=== PATIENT | female | born 1990 | race Caucasian/White ===

== ENCOUNTER → 2024-08-15 | Outpatient (CLI) | payer MEDICAID ==
[2024-08-15 15:06] LABS: HCT 37.4 % (37.2-46.3); MCH 29.7 pg (27.0-32.0); MCHC 32.1 g/dL (32.0-37.0); MCV 92.6 FL (80.0-97.0); NRBC Per 100 WBC 0 X 10*3/uL (0.00-0.01); Platelet Count 238 X 10*3/uL (140-440); RBC 4.04 X 10*6/uL (4.10-5.20); RDW 13.4 % (11.5-14.5); WBC 8.29 X 10*3/uL (4.50-10.00)
== END | disposition home or self-care (01) ==
LOC: LABWHC1 09:41
PROVIDERS: ATTEND Obstetrics & Gynecology Obstetrics
DX: Z36.9 Encounter for antenatal screening, unspecified (principal)
CPT/HCPCS: 36415; 82950; 85027

== ENCOUNTER 2024-09-15 13:46 | Outpatient (CLI) | payer MEDICAID ==
[2024-09-15 14:29] VITALS: BP 141/82; PULSE 106; RESP 16; TEMP 96.8
--- NOTE | 2024-09-16 02:38 | P.MSEPDOC ---
Presenting Problems - Arrival Data Date of Arrival on Unit: 09/15/24 Time of Arrival on Unit: 13:46 Mode of Transport: Ambulatory - Complaint OB-Reason for Admission/Chief Complaint: Decreased Movement Medical History - Information : 1 Para: 0 Term: 0 : 0 Abortions: Spontaneous or Elective: 0 Number of Living Children: 0 - Gestational Age Gestational Age by ANIA (wks/days): 32 Weeks and 5 Days Review of Systems - Review of Systems Constitutional: No problems Breast: No problems ENT: No problems Cardiovascular: No problems Respiratory: No problems Gastrointestinal: No problems Genitourinary: No problems Musculoskeletal: No problems Neurological: No problems Skin: No problems Vital Signs - Temperature Temperature: 96.8 F Temperature Source: Temporal Artery Scan - Pulse Right Brachial Pulse Rate: 106 Pulse Assessment Method: Pulse Oximetry - Respirations Respiratory Rate: 16 Oxygen Delivery Method: Room Air O2 Sat by Pulse Oximetry: 98 - Blood Pressure Right Arm Blood Pressure: 141/82 Blood Pressure Mean: 101 Blood Pressure Source: Automatic Cuff - Comment Vital Signs Comment: Repeat bp obtained of 125/80. Medical Screen Scoring - Assessment - Baby A Baseline FHR: 130 Heart Rate - NICHD Category: Category I (Normal) NST: Reactive Physician Notification - Physician Notified Physician Notified Date: 09/15/24 Physician Notified Time: 16:18 Physician: Gucci Moeller New Order Received: Yes - Notification Comment Comment: Dr. Moeller given report on pt. Pt c/o of decreased movement. Reactive NST. No contractions noted. Movement felt per pt and noted audibly. Orders received to d/c pt to home. Maternal Triage Index - Urgent/Priority 2 Urgent Priority 2: Yes Provider Notified: Gucci Moeller Provider Notified Time: 14:18 Criteria Met for Priority 2: Pt presents to triage with c/o of decreased movement. Disposition - Disposition OB Disposition: Discharge to home Discharge Date: 09/15/24 Discharge Time: 14:23 I agree with the RN Medical Screening Exam: Yes Physician's MSE Comment: I have neither seen nor examined the patient. Case reviewed; plan agreed upon as documented in EMR&OBIX.: Yes Diagnosis: RELATED CONDITIONS, UNSPECIFIED, THIRD TRIMESTER
== END 2024-09-15 14:23 | disposition home or self-care (01) ==
LOC: FBPOP 13:46
PROVIDERS: ATTEND Obstetrics & Gynecology
CPT/HCPCS: 59025; 99213

== ENCOUNTER 2024-10-23 10:31 | Outpatient (CLI) | payer MEDICAID ==
--- NOTE | 2024-10-23 11:28 | US ---
EXAMINATION TYPE: US OB BPP wo non-stress DATE OF EXAM: 10/23/2024 COMPARISON: NONE CLINICAL INDICATION: Female, 34 years old with history of BPP; decels at office; Patient feelin g movement TECHNIQUE: Transabdominal (TA). Scoring by the java groovy developer during real-time assessment. FINDINGS: BPP PARAMETERS: PRESENTATION: Vertex LIE: Longitudinal?? HEART RATE: 133 bpm RHYTHM: Normal MADDIE: 9.5 DIAPHRAGM IMAGED: Yes BPP SCORIN. Breathin (1 episode of breathing of 30 second duration in 30 minutes of scanning time) 2. Movement: 2 (at least 3 discrete body movements in 30 minutes) 3. Tone: 2 (1 episode of active flexion/extension of limb) 4. MADDIE: 2 (MADDIE index > 5cm) ARCHITECTURAL SUPERINTENDENT NOTES: Multiple placental lakes and lobulated contour IMPRESSION: TOTAL SCORE: 8 / 8 [facility], , 10/23/2024 11:26 AM
[2024-10-23 11:37] LABS: Basophils % (A) 0 %; Eosinophils # (A) 0.1 k/uL (0-0.7); Eosinophils % (A) 1 %; HCT 38.7 % (34.0-46.0); Lymphocytes # (A) 1.8 k/uL (1.0-4.8); Lymphocytes % (A) 21 %; MCHC 33.6 g/dL (31.0-37.0); MCV 89.4 fL (80.0-100.0); Monocytes # (A) 0.5 k/uL (0-1.0); Monocytes % (A) 6 %; Neutrophils # (A) 5.8 k/uL (1.3-7.7); Neutrophils % (A) 69 %; Platelet Count 236 k/uL (150-450); RBC 4.33 m/uL (3.80-5.40); RDW 14.1 % (11.5-15.5); WBC 8.5 k/uL (3.8-10.6)
[2024-10-23 12:03] VITALS: BP 127/83; PULSE 84; RESP 16
--- NOTE | 2024-10-24 08:23 | P.MSEPDOC ---
Presenting Problems - Arrival Data Date of Arrival on Unit: 10/23/24 Time of Arrival on Unit: 10:31 Mode of Transport: Ambulatory - Complaint OB-Reason for Admission/Chief Complaint: Other Comment: sent from office for decels during NST in office Medical History - Information : 1 Para: 0 - Gestational Age Gestational Age by ANIA (wks/days): 38 Weeks and 1 Days Review of Systems - Review of Systems Constitutional: No problems Breast: No problems ENT: No problems Cardiovascular: No problems Respiratory: No problems Gastrointestinal: No problems Genitourinary: No problems Musculoskeletal: No problems Neurological: No problems Skin: No problems Vital Signs - Pulse Pulse Oximetery Pulse Rate: 84 Pulse Assessment Method: Pulse Oximetry - Respirations Respiratory Rate: 16 - Blood Pressure Right Arm Blood Pressure: 127/83 Blood Pressure Mean: 97 Blood Pressure Source: Automatic Cuff Medical Screen Scoring - Assessment - Baby A Baseline FHR: 130 Heart Rate - NICHD Category: Category I (Normal) NST: Reactive Physician Notification - Physician Notified Physician Notified Date: 10/23/24 Physician Notified Time: 11:34 Physician: Cindy Majano New Order Received: Yes - Notification Comment Comment: Dr. Majano called at office. Report given that FHTs are category 1 with moderate variability, multiple accels, and no decels. Fetus is very active. BPP was 8/8. Orders to discharge pt home with instructions to keep her next appointment (sofia next ) Maternal Triage Index - Maternal Triage Index Presenting for scheduled procedure w/no complaint: Yes - Scheduled/Requesting Priority 5 Scheduled/Requesting Priority 5: Yes Criteria Met for Priority 5: 38 1/7wks, sent from office with an order for an NST and BPP due to decels noted during NST at office Disposition - Disposition OB Disposition: Discharge to home Discharge Date: 10/23/24 Discharge Time: 11:45 I agree with the RN Medical Screening Exam: Yes Case reviewed; plan agreed upon as documented in EMR&OBIX.: Yes Diagnosis: RELATED CONDITIONS, UNSPECIFIED, THIRD TRIMESTER
== END 2024-10-23 11:45 | disposition home or self-care (01) ==
LOC: FBPOP 10:31
PROVIDERS: ATTEND Obstetrics & Gynecology Obstetrics
DX: O26.893 Other specified pregnancy related conditions, third trimester (principal); Z3A.38 38 weeks gestation of pregnancy
CPT/HCPCS: 36415; 59025; 76819; 85025; 86850; 86900; 86901; 99213

== ENCOUNTER 2024-11-01 06:00 | Inpatient (IN) | payer MEDICAID ==
[2024-11-01] MEDS ORDERED: OXYTOCIN 10 UNIT/ML 1 ML VIAL IM PRN (06:18)
[2024-11-01] MEDS ORDERED: METHYLERGONOVINE 0.2 MG/ML 1 ML AMP IM PRN (06:18)
[2024-11-01] MEDS ORDERED: TRANEXAMIC 1,000 MG/100ML-NACL 1,000 MG in EMPTY BAG 1 BAG IV PRN (06:18)
[2024-11-01] MEDS ORDERED: CARBOPROST TROMETHAMINE 250 MCG/ML 1 ML AMP IM PRN (06:18)
[2024-11-01] MEDS ORDERED: miSOPROStoL 200 MCG TAB PO PRN (06:18)
[2024-11-01 06:24] VITALS: RESP 16
[2024-11-01] MEDS: LACTATED RINGERS 1,000 ML IV SCH ×2 (06:34→10:01)
[2024-11-01 06:38] LABS: Basophils % (A) 1 %; Eosinophils # (A) 0.1 k/uL (0-0.7); Eosinophils % (A) 1 %; HGB 12.9 gm/dL (11.4-16.0); Lymphocytes # (A) 1.7 k/uL (1.0-4.8); Lymphocytes % (A) 22 %; MCH 30.4 pg (25.0-35.0); Mean Platelet Volume 7.7; Monocytes # (A) 0.5 k/uL (0-1.0); Monocytes % (A) 7 %; Neutrophils # (A) 5.2 k/uL (1.3-7.7); Neutrophils % (A) 68 %; Platelet Count 230 k/uL (150-450); RBC 4.24 m/uL (3.80-5.40); RDW 13.9 % (11.5-15.5); WBC 7.7 k/uL (3.8-10.6)
[2024-11-01] MEDS: CITRIC ACID-SODIUM CITRATE 15 ML CUP PO ONE (07:34)
[2024-11-01] MEDS ORDERED: ePHEDrine 50 MG/ML 1 ML VIAL ONE (07:59)
[2024-11-01] MEDS ORDERED: NALBUPHINE (ANES) 10 MG/ML - 1 ML AMP ONE (07:59)
[2024-11-01] MEDS ORDERED: ONDANSETRON 4 MG/2 ML VIAL ONE (07:59)
[2024-11-01] MEDS ORDERED: MORPHINE SULFATE (PF) 0.3 MG/0.3 ML SYR ONE (07:59)
[2024-11-01] MEDS ORDERED: DEXAMETHASONE SOD PHOSPHATE 4 MG/ML 1 ML VIAL ONE (07:59)
[2024-11-01] MEDS ORDERED: OXYTOCIN 30 UNITS/500 ML NS BAG IV ONE (07:59)
[2024-11-01] MEDS ORDERED: PHENYLEPHRINE-0.9% NACL SYG 1,000 MCG/10 ML SYRINGE ONE (07:59)
[2024-11-01] MEDS ORDERED: diphenhydrAMINE 25 MG CAP PO PRN (08:57)
[2024-11-01] MEDS ORDERED: SIMETHICONE 80 MG CHEWABLE PO PRN (08:57)
[2024-11-01] MEDS ORDERED: diphenhydrAMINE 50 MG CAP PO PRN (08:57)
[2024-11-01] MEDS ORDERED: METOCLOPRAMIDE 5 MG/ML 2 ML VIAL IVP PRN (08:57)
[2024-11-01] MEDS ORDERED: diphenhydrAMINE 50 MG/ML 1 ML VIAL IVP PRN ×2 (08:57)
[2024-11-01] MEDS ORDERED: ONDANSETRON 4 MG/2 ML VIAL IVP PRN (08:57)
[2024-11-01] MEDS ORDERED: ZOLPIDEM 5 MG TAB PO PRN (08:57)
[2024-11-01] MEDS ORDERED: NALOXONE 0.4 MG/ML 1 ML VIAL IV PRN (08:57)
[2024-11-01] MEDS: ACETAMINOPHEN IV (For NPO) 1,000 MG in EMPTY BAG 1 BAG IVPB ONE (10:01)
--- NOTE | 2024-11-01 13:05 | P.HPOB ---
History of Present Illness H&P Date: 11/01/24 Chief Complaint: IUP at 39+ weeks 34-year-old 1 para 0 at 39+ weeks that presents to labor and delivery for primary low-transverse section. Patient is requesting secondary to head being greater than the 99th percentile throughout the . Patient states her mom has a history of sections and the father the baby states his mother had a 4 degree vaginal laceration during delivery. After extensive counseling and multiple questions answered patient elected to proceed with primary low-transverse section. care has been essentially uncomplicated. Review of Systems Constitutional: Denies chills, Denies fatigue, Denies fever Ears, nose, mouth and throat: Reports headache Cardiovascular: Reports leg edema Respiratory: Denies dyspnea Gastrointestinal: Denies nausea, Denies vomiting Genitourinary: Reports Past Medical History Past Medical History: No Reported History History of Any Multi-Drug Resistant Organisms: None Reported Additional Past Surgical History / Comment(s): wisdom Past Anesthesia/Blood Transfusion Reactions: No Reported Reaction Past Psychological History: No Psychological Hx Reported Smoking Status: Never smoker Past Alcohol Use History: None Reported Past Drug Use History: None Reported - Past Family History Father Family Medical History: Coronary Artery Disease (CAD) Mother Family Medical History: Hypertension Medications and Allergies Home Medications Medication Instructions Recorded Confirmed Type Aspirin [Adult Low Dose Aspirin EC] 81 mg PO DAILY 09/15/24 11/01/24 History Docusate [Colace] 1 tab PO ONCE 09/15/24 11/01/24 History Vit No.179/Iron/Folic 1 tab PO DIRECTED PRN 09/15/24 11/01/24 History [ Tablet] Allergies Allergy/AdvReac Type Severity Reaction Status Date / Time No Known Allergies Allergy Verified 10/26/24 15:15 Exam Osteopathic Statement: *. No significant issues noted on an osteopathic structural exam other than those noted in the History and Physical/Consult. Vital Signs Temp Pulse Resp BP Pulse Ox 11/01/24 06:16 97.9 F 111 H 16 129/91 98 Intake and Output 10/31/24 11/01/24 11/01/24 22:59 06:59 14:59 Other: Weight 90.718 kg Targeted physical exam is performed this date in general is well-nourished well- developed female in no acute distress, breathing is nonlabored, abdomen is gravid and appropriate for gestational age, cervical exam is deferred, heart tones noted to be category 1 and she is not maddie Results Result Diagrams: 11/01/24 06:25 Assessment and Plan (1) Term Current Visit: Yes Status: Acute Code(s): Z34.90 - ENCNTR FOR SUPRVSN OF NORMAL , UNSP, UNSP TRIMESTER SNOMED Code(s): 20520962 Plan: 34-year-old G1, P0 at 39+ weeks that presents for primary low-transverse section. Patient is requesting primary secondary to head circumference and BPD measuring greater than the 99th percentile throughout the . Patient states her mom had sections and she is desirous of proceeding with primary .
--- NOTE | 2024-11-01 13:14 | P.OP ---
Date of Procedure: 11/01/24 Preoperative Diagnosis: IUP at 39-3/7 weeks, HC greater than the 99th percentile, maternal history of section, maternal request primary Postoperative Diagnosis: Same Procedure(s) Performed: MRI low-transverse section Anesthesia: spinal Surgeon: Cindy Majano Organizational Research Consultant #1: Yasmin Rowe Estimated Blood Loss (ml): 700 IV fluids (ml): 900 Urine output (ml): 50 Pathology: none sent Condition: stable Disposition: observation Indications for Procedure: Request, history of maternal section, head circumference, BPD greater than the 99th percentile throughout the . Operative Findings: Viable male infant delivered at 823, weight of 8 pounds 8 ounces, Apgars of 9 and 9 at 1 and 5 minutes respectively Description of Procedure: The patient was prepped and draped in the usual fashion after spinal anesthesia was administered by the anesthesia department. A Pfannenstiel incision was made and extended of the abdominal cavity without difficulty. The bladder peritoneum was elevated and incised and reflected distally. A 2 cm incision was made in the transverse plane of the lower uterine segment to enter the uterus at which time clear fluid was noted. The incision was extended in both directions using the bandage scissors. The head was encountered within the field and delivered up and through the incision where the nose and mouth were thoroughly suctioned. Remainder of the infant was delivered onto the surgical field where the cord was doubly clamped, cut, and the was passed for resuscitative measures with weight and Apgars as noted above. A segment of cord was then doubly clamped, cut, and set aside should cord gases become necessary. The placenta was delivered manually, intact, and was grossly normal with a grossly normal three-vessel cord. The uterus was exteriorized and the interior cavity of the uterus swept of any remaining placental and membranous fragments with a laparotomy sponge. The margins of the incision were grasped with allis clamps and the incision closed in 2 layers. First layer was a running locking layer of 0 vicryl from margin to margin followed by a second layer of imbricating 0 vicryl from margin to margin. Any small points of bleeding were then made hemostatic with the Bovie. Once hemostasis was achieved, the posterior cul-de-sac was suctioned with a guard and the uterine and ovarian findings are as noted above. The uterus was replaced within the abdominal cavity and the gutters swept of any remaining blood fluid or clot. The incision was again reexamined and hemostasis was noted to be excellent. Any small point of bleeding were made hemostatic with the Bovie. Once hemostasis was achieved the parietal peritoneum was loosely reapproximated. The layer of muscles were examined and made hemostatic with the Bovie. Attention was then turned to the fascia which was closed with 0 Vicryl in a running fashion from 1 lateral edge to the other.. The subcutaneous tissues were irrigated, made hemostatic with the Bovie, and reapproximated with a running stitch of 30 vicryl. The skin was reapproximated with regular surgical jimena. Estimated blood loss for the case was approximately 700 mL. All sponge instrument and needle counts are correct. There were no complications. The patient tolerated the procedure well and proc eeded to the recovery room in stable condition. Both mother and are resting comfortably in recovery.
[2024-11-01] MEDS: IBUPROFEN IV 800 MG in SODIUM CHLORIDE 0.9% 250 ML IV ONE (16:53)
[2024-11-01] MEDS: IBUPROFEN 800 MG TAB PO SCH (16:55)
[2024-11-01] MEDS: ACETAMINOPHEN TAB 500 MG TAB PO SCH (19:34)
[2024-11-01] MEDS: SENNOSIDES-DOCUSATE SODIUM 1 EACH TAB PO SCH (20:46)
[2024-11-02] MEDS: LACTATED RINGERS 1,000 ML BAG IV STA (00:34)
[2024-11-02 06:36] LABS: Basophils % (A) 0 %; Eosinophils # (A) 0.1 k/uL (0-0.7); Eosinophils % (A) 1 %; HCT 28.7 % (34.0-46.0); Lymphocytes # (A) 2.1 k/uL (1.0-4.8); Lymphocytes % (A) 22 %; MCH 30.2 pg (25.0-35.0); MCHC 32.8 g/dL (31.0-37.0); MCV 92.1 fL (80.0-100.0); Mean Platelet Volume 7.8; Monocytes # (A) 0.6 k/uL (0-1.0); Monocytes % (A) 7 %; Neutrophils # (A) 6.4 k/uL (1.3-7.7); Neutrophils % (A) 68 %; Platelet Count 196 k/uL (150-450); RBC 3.12 m/uL (3.80-5.40); RDW 13.9 % (11.5-15.5); WBC 9.4 k/uL (3.8-10.6)
[2024-11-02 06:48] LABS: HGB 9.4 gm/dL (11.4-16.0)
--- NOTE | 2024-11-02 08:39 | P.PNOBGPC ---
Subjective - Subjective Principal diagnosis: Postop day 1, low-transverse section Interval history: Patient is doing well overall. She is ambulating and voiding without difficulty. She denies flatus but states she is tolerating a regular diet without nausea or vomiting. Lochia is minimal to moderate. She is breast- feeding without difficulty Patient reports: Reports appetite normal, Reports voiding normally, Reports pain well controlled, Reports ambulating normally Ranger: doing well, nursing well Objective - Vital Signs Latest vital signs: Vital Signs Temp Pulse Resp BP Pulse Ox 11/02/24 00:00 98.1 F 79 16 131/88 97 11/01/24 16:00 98.3 F 89 16 136/86 95 11/01/24 12:00 98.0 F 76 16 116/72 11/01/24 10:30 71 16 130/75 11/01/24 10:15 75 16 117/59 11/01/24 10:00 96.7 F L 75 16 117/59 11/01/24 09:45 69 16 127/69 11/01/24 09:30 75 16 119/60 11/01/24 09:15 96 16 117/59 11/01/24 09:00 96.1 F L 77 16 123/63 Intake and Output 11/01/24 11/02/24 11/02/24 22:59 06:59 14:59 Intake Total 1100 Output Total 1100 400 Balance 0 -400 Intake: Oral 1100 Output: Urine 1100 400 Uretheral (Spence) 1100 Other: # Voids 1 - Exam Extremities: Present: normal, edema Abdomen: Present: normal appearance, soft Incision: Present: normal, dry, intact Uterus: Present: normal, firm - Labs Labs: Abnormal Lab Results - Last 24 Hours (Table) 11/02/24 Range/Units 06:19 RBC 3.12 L (3.80-5.40) m/uL Hgb 9.4 L D (11.4-16.0) gm/dL Hct 28.7 L (34.0-46.0) % Assessment and Plan (1) Term Current Visit: Yes Status: Acute Code(s): Z34.90 - ENCNTR FOR SUPRVSN OF NORMAL , UNSP, UNSP TRIMESTER SNOMED Code(s): 08677282 (2) Status post section Current Visit: Yes Status: Acute Code(s): Z98.891 - HISTORY OF UTERINE SCAR FROM PREVIOUS SURGERY SNOMED Code(s): 381526339 Plan: 34-year-old G1 now P1 status post primary . Patient is doing well postoperatively. Plan to continue routine postoperative care.
--- NOTE | 2024-11-02 08:43 | P.PN ---
Progress Note - Text Progress Note Date: 11/02/24 Postoperative day 1 status post section under spinal anesthesia, and intrathecal morphine given for postoperative analgesia, patient doing well, there is no anesthesia related complications, Patient had no headache, vital signs stable , Assessment and plan= postop day 1 status post , doing well there is no anesthesia related complication.
[2024-11-02] MEDS: IRON POLYSACCHARIDES COMPLEX 150 MG CAP PO SCH (10:11)
[2024-11-02] MEDS: PRENATAL VIT-IRON-FOLIC ACID 1 EACH TABLET PO SCH (11:17)
--- NOTE | 2024-11-03 08:57 | P.DS ---
Providers Date of admission: 11/01/24 06:00 Expected date of discharge: 11/03/24 Attending physician: Cindy Majano Primary care physician: Stated None - Discharge Diagnosis(es) (1) Term Current Visit: Yes Status: Acute (2) Status post section Current Visit: Yes Status: Acute Hospital Course: 34-year-old G1 now P1 that presented to labor and delivery on 11/01 for scheduled primary , maternal request. Patient has been receiving routine care with myself which has been essentially uncomplicated. Patient had multiple ultrasounds revealing an HC, BPD greater than the 99th percentile. Patient requested primary as her mom had C-sections with all of her deliveries and with the head being greater than the 99th percentile. For full details in this patient please see the dictated history and physical. Patient was taken back to the operating suite where spinal anesthesia was found to be adequate. Patient delivered a viable male via vacuum assist at 823, weight of 8 pounds 8 ounces, Apgars of 9 and 9 at 1 and 5 minutes respec tively. Patient's postoperative course has been uneventful. In this postoperative day #2 she is ambulating and voiding without difficulty. Her lochia is minimal to moderate. She is breast-feeding without difficulty. She states her pain is well-controlled. She would like discharge home. Patient Condition at Discharge: Good Plan - Discharge Summary Discharge Rx Participant: No New Discharge Prescriptions: No Action Vit No.179/Iron/Folic [ Tablet] 1 tab PO DIRECTED PRN PRN Reason: Constipation Aspirin [Adult Low Dose Aspirin EC] 81 mg PO DAILY Docusate [Colace] 1 tab PO ONCE Discharge Medication List Aspirin [Adult Low Dose Aspirin EC] 81 mg PO DAILY 09/15/24 [History] Docusate [Colace] 1 tab PO ONCE 09/15/24 [History] Vit No.179/Iron/Folic [ Tablet] 1 tab PO DIRECTED PRN 09/15/24 [History] Follow up Appointment(s)/Referral(s): Cindy Majano DO [Doctor of Osteopathic Medicine] - 12/13/24 1:45 pm (Post C/S Appointment 11-19-2024 at 2:30pm) Patient Instructions/Handouts: (DC), (GEN) Activity/Diet/Wound Care/Special Instructions: [id number] ibuprofen 600 mg or 3 tablets every 6 hours as needed for pain. No tub baths or intercourse until 6 weeks . Routine postop check at 2 weeks. Discharge Disposition: HOME SELF-CARE
[2024-11-03 09:19] VITALS: BP 132/82; PULSE 101; TEMP 98.5
== END 2024-11-03 13:38 | disposition home or self-care (01) | DRG 787 ==
LOC: 4FBP 06:00
PROVIDERS: ADMIT Obstetrics & Gynecology Obstetrics; ATTEND Obstetrics & Gynecology Obstetrics
PROC: 10D00Z1 Extraction of Products of Conception, Low, Open Approach (ICD-10-PCS; principal; 2024-11-01 08:00)
DX: O33.5XX0 Maternal care for disproportion due to unusually large fetus, not applicable or unspecified (principal); D62 Acute posthemorrhagic anemia; O99.02 Anemia complicating childbirth; Z37.0 Single live birth; Z3A.39 39 weeks gestation of pregnancy; Z79.82 Long term (current) use of aspirin; Z82.49 Family history of ischemic heart disease and other diseases of the circulatory system
CPT/HCPCS: 85025; 86850; 86900; 86901